=== PATIENT | female | born 1990 | race Caucasian/White ===

== ENCOUNTER 2016-09-10 17:59 | Emergency (ER) | payer MEDICAID, OTHER ==
[~2016-09-10] VITALS: Ht 160 cm; Wt 81.6 kg
[~2016-09-10 17:59] MED LIST: HYDR-4446 PO; LEVO500T6 PO
[2016-09-10 18:43] VITALS: BP 124/66
--- NOTE | 2016-09-10 20:56 | NUR ---
Patient to OF.
--- NOTE | 2016-09-10 21:00 | NUR ---
25Y F PRESENTED IN ER C/O OF CRAMPING PAIN TO SUPRAPUBIC AREA X2 DAYS. PAIN IS GETTING WORST TODAY. PT STATES SHE HAS SOME CLEAR GLUEY DISCHARGES.
--- NOTE | 2016-09-10 21:19 | NUR ---
Patient to bed 08.
[2016-09-10 22:52] VITALS: BP 125/71
--- NOTE | 2016-09-10 22:52 | NUR ---
DISCHARGE NOTE ONLY: Patient discharged with v/s stable BY ER MD DR ROQUE. Written and verbal after care instructions given and explained BY ER MD DR ROQUE. Patient alert, oriented and verbalized understanding of instructions. Ambulatory with steady gait. All questions addressed prior to discharge BY ER MD DR ROQUE. ID band removed. Patient advised to follow up with PMD. Rx of DOXYCYCLINE 100MG given. Patient educated on indication of medication including possible reaction and side effects. Opportunity to ask questions provided and answered BY ER MD DR ROQUE.
== END 2016-09-10 22:52 | disposition home or self-care (01) ==
LOC: MED 17:59
DX: N76.0 Acute vaginitis (principal)
CPT/HCPCS: 36415; 81025; 87070; 87210; 99284

== ENCOUNTER 2021-06-18 17:02 | Emergency (ER) | payer OTHER ==
[~2021-06-18] VITALS: Ht 160 cm; Wt 91.6 kg
[~2021-06-18 17:02] MED LIST changes: +ACET-8386 PO; -HYDR-4446 PO
[2021-06-18 17:24] VITALS: BP 132/70
--- NOTE | 2021-06-18 17:31 | NUR ---
LYNNE. HANDED ON URINE CUP.
[2021-06-18] MEDS ORDERED: CEPH250C16 PO (18:13)
[2021-06-18 18:18] VITALS: BP 115/70
== END 2021-06-18 18:19 | disposition home or self-care (01) ==
LOC: MED 17:02
DX: N30.90 Cystitis, unspecified without hematuria (principal)
CPT/HCPCS: 81002; 81025; 99283

== ENCOUNTER 2022-07-22 13:08 | Emergency (ER) | payer OTHER ==
[~2022-07-22] VITALS: Ht 160 cm; Wt 75.3 kg
[~2022-07-22 13:08] MED LIST changes: -ACET-8386 PO; +ACET-8905 PO; +CEPH250C16 PO
[2022-07-22 13:25] VITALS: BP 124/68
--- NOTE | 2022-07-22 14:00 | NUR ---
BIB SELF C/O LOSS OF APPITITE 1 WEEK AND C/O DIARRHEA X 4 DAYS AND C/O COUGH, MID CHEST PAIN X 3 DAYS AND C/O VAZQUEZ, SORE THROAT X 2 DAYS AND C/O FEVER, CHILLS, RLQ ABDOMINAL PAIN X LAST NIGHT. COVID TESTED NEGATIVE 2 DAYS AGO. PMH: DENIES
[2022-07-22 14:30] LABS: APPEARANCE,URINE HAZY (CLEAR); BILIRUBIN,URINE NEGATIVE (NEGATIVE); BLOOD, URINE 1+ (NEGATIVE); COLOR,URINE YELLOW (YELLOW); LEUKOCYTE ESTERASE ,URINE NEGATIVE (NEGATIVE); NITRITE, URINE NEGATIVE (NEGATIVE); UGLUCOSE NEGATIVE (NEGATIVE)
--- NOTE | 2022-07-22 14:43 | NUR ---
CALLED X1. NO SHOW.
--- NOTE | 2022-07-22 14:48 | NUR ---
PT CALLED BY [employer] REPRESENT[employer]IVE [employer] IN LOBBY AND OUTSIDE, NO ANSWER
[2022-07-22 15:06] LABS: WBC,URINE 0-5 /HPF (0-5)
--- NOTE | 2022-07-22 15:20 | NUR ---
COVID, FLU SWABS DONE.
[2022-07-22 15:24] LABS: BASOPHILS % (AUTO) 0.6 % (0.0-2.0); EOSINOPHILS # (AUTO) 0.2 K/uL (0-0.4); EOSINOPHILS % (AUTO) 3.4 % (0.0-4.0); HEMATOCRIT 39.4 % (36-48); HEMOGLOBIN 13.2 g/dL (12.0-16.0); LYMPHOCYTES # (AUTO) 2.4 K/uL (2.5-16.5); LYMPHOCYTES % (AUTO) 34.9 % (20.5-51.1); MEAN CORPUSCULAR HEMOGLOBIN 31 pg (27-31); MEAN CORPUSCULAR HGB CONC 34 g/dL (33-37); MEAN CORPUSCULAR VOLUME 91.8 fL (80-94); MONOCYTES # (AUTO) 0.8 K/uL (0.8-1.0); NEUTROPHILS # (AUTO) 3.5 K/uL (1.8-7.7); NEUTROPHILS % (AUTO) 50.1 % (42.2-75.2); PLATELET COUNT (AUTO) 275 K/uL (140-450); RED BLOOD CELL COUNT(AUTO) 4.29 MIL/uL (4.20-5.40); RED CELL DISTRIBUTION WIDTH 14.3 % (11.6-13.7); WHITE BLOOD COUNT (AUTO) 6.9 K/uL (4.8-10.8)
[2022-07-22 15:50] LABS: ANION GAP 6.9 (8-16); CARBON DIOXIDE 31.9 mmol/L (21-32); CREATININE 0.8 mg/dL (0.6-1.3); POTASSIUM 3.8 mmol/L (3.5-5.1)
[2022-07-22 15:56] LABS: ALBUMIN 3.5 g/dL (3.4-5.0); TOTAL BILIRUBIN 0.3 mg/dL (0.0-1.0)
[2022-07-22] MEDS ORDERED: ONDA-188 SL (17:11)
[2022-07-22] MEDS ORDERED: GUAI-791 PO (17:11)
[2022-07-22] MEDS ORDERED: IBUP-2213 PO (17:11)
[2022-07-22] MEDS ORDERED: PSEU-250 PO (17:11)
[2022-07-22] MEDS ORDERED: PROM118S5 PO (17:11)
[2022-07-22 17:20] VITALS: BP 116/62
--- NOTE | 2022-07-22 17:20 | NUR ---
Patient discharged with v/s stable. Written and verbal after care instructions given and explained. Patient alert, oriented and verbalized understanding of instructions. Ambulatory with steady gait. All questions addressed prior to discharge. ID band removed. Patient advised to follow up with PMD. Rx of IBUPROFEN, ZOFRAN, MUCINEX, PSEUDOEPHEDRINE, PROMETHAZINE given. Patient educated on indication of medication including possible reaction and side effects. Opportunity to ask questions provided and answered.
== END 2022-07-22 17:20 | disposition home or self-care (01) ==
LOC: MED 13:08
DX: B34.9 Viral infection, unspecified (principal); Z20.822 Contact with and (suspected) exposure to COVID-19; R19.7 Diarrhea, unspecified; R10.9 Unspecified abdominal pain; Z79.899 Other long term (current) drug therapy
CPT/HCPCS: 36415; 80053; 81001; 81025; 82150; 83690; 85025; 99283

== ENCOUNTER 2022-08-21 04:13 | Emergency (ER) | payer OTHER ==
[~2022-08-21] VITALS: Ht 160 cm; Wt 74.4 kg
[~2022-08-21 04:13] MED LIST changes: +GUAI-791 PO; +IBUP-2213 PO; +ONDA-188 SL; +PROM118S5 PO; +PSEU-250 PO
[2022-08-21 04:17] VITALS: BP 111/54
--- NOTE | 2022-08-21 04:30 | NUR ---
PT TAKEN TO BED 3
[2022-08-21] MEDS ORDERED: KETOROLAC 30 MG/ML VIAL IM ONE (04:35)
--- NOTE | 2022-08-21 04:44 | NUR ---
Dr. Taylor examining patient.
--- NOTE | 2022-08-21 04:51 | NUR ---
Ultrasound at bedside.
[2022-08-21 04:55] VITALS: BP 111/54
[2022-08-21 05:28] LABS: BASOPHILS # (AUTO) 0.1 K/uL (0.00-0.22); BASOPHILS % (AUTO) 0.7 % (0.0-2.0); EOSINOPHILS # (AUTO) 0.2 K/uL (0-0.4); EOSINOPHILS % (AUTO) 1.6 % (0.0-4.0); HEMATOCRIT 39.6 % (36-48); HEMOGLOBIN 13.1 g/dL (12.0-16.0); LYMPHOCYTES # (AUTO) 3.7 K/uL (2.5-16.5); LYMPHOCYTES % (AUTO) 29.2 % (20.5-51.1); MEAN CORPUSCULAR HEMOGLOBIN 31 pg (27-31); MEAN CORPUSCULAR HGB CONC 33 g/dL (33-37); MONOCYTES # (AUTO) 0.6 K/uL (0.8-1.0); MONOCYTES % (AUTO) 4.6 % (1.7-9.3); NEUTROPHILS # (AUTO) 8.1 K/uL (1.8-7.7); NEUTROPHILS % (AUTO) 63.9 % (42.2-75.2); PLATELET COUNT (AUTO) 318 K/uL (140-450); RED BLOOD CELL COUNT(AUTO) 4.26 MIL/uL (4.20-5.40); RED CELL DISTRIBUTION WIDTH 14.2 % (11.6-13.7); WHITE BLOOD COUNT (AUTO) 12.7 K/uL (4.8-10.8)
[2022-08-21] MEDS: PHENAZOPYRIDINE 100 MG TAB PO ONE (05:28)
[2022-08-21 05:29] LABS: APPEARANCE,URINE CLEAR (CLEAR); BILIRUBIN,URINE NEGATIVE (NEGATIVE); BLOOD, URINE TRACE-I (NEGATIVE); COLOR,URINE YELLOW (YELLOW); LEUKOCYTE ESTERASE ,URINE TRACE (NEGATIVE); NITRITE, URINE NEGATIVE (NEGATIVE); UGLUCOSE NEGATIVE (NEGATIVE)
[2022-08-21] MEDS: KETOROLAC 30 MG/ML VIAL IVP ONE (05:29)
[2022-08-21] MEDS: NACL 0.9% 1,000 ML IV SCH (05:31)
[2022-08-21 05:32] LABS: RBC,URINE 0-5 /HPF (0-5)
[2022-08-21 05:49] LABS: ALBUMIN 3.3 g/dL (3.4-5.0); ANION GAP 12.2 (8-16); CREATININE 0.8 mg/dL (0.6-1.3); POTASSIUM 4.2 mmol/L (3.5-5.1); TOTAL BILIRUBIN 0.3 mg/dL (0.0-1.0)
[2022-08-21] MEDS ORDERED: CEPH-588 PO (06:33)
[2022-08-21] MEDS ORDERED: IBUP-2213 PO (06:33)
[2022-08-21] MEDS ORDERED: cefTRIAXone 1,000 MG VIAL ONE (07:15)
--- NOTE | 2022-08-21 07:30 | NUR ---
PATIENT IS DOING WELL. WILL dC AFTER ROCEPHIN INFUSION. DC INSTRUCTION GIVEN.
--- NOTE | 2022-08-21 07:39 | NUR ---
IV removed, catheter intact and site benign. Applied folded 4x4 gauze and tape to stop bleeding.
--- NOTE | 2022-08-21 07:40 | NUR ---
Patient discharged with v/s stable. Written and verbal after care instructions FOR PYLENEPHRITIS AND UTI given and explained. Patient alert, oriented and verbalized understanding of instructions. Ambulatory with steady gait. All questions addressed prior to discharge. ID band removed. Patient advised to follow up with PMD. Rx of KELFEX AND IBUPROFEN given. Opportunity to ask questions provided and answered.
--- NOTE | 2022-08-21 07:56 | NUR ---
The patient's care was reviewed and supervised by [facility], RN.
== END 2022-08-21 07:40 | disposition home or self-care (01) ==
LOC: MED 04:13
DX: N39.0 Urinary tract infection, site not specified (principal); N83.202 Unspecified ovarian cyst, left side; N12 Tubulo-interstitial nephritis, not specified as acute or chronic; Z90.49 Acquired absence of other specified parts of digestive tract; Z98.51 Tubal ligation status; Z98.890 Other specified postprocedural states; Z79.899 Other long term (current) drug therapy; Z79.1 Long term (current) use of non-steroidal anti-inflammatories (NSAID); Z79.2 Long term (current) use of antibiotics; Z79.891 Long term (current) use of opiate analgesic
CPT/HCPCS: 36415; 74176; 76856; 80053; 81001; 83605; 85025; 87040; 87086; 93976; 96361; 96374; 96375; 99285; J0696; J1885; J7030; Q0092; 96365

== ENCOUNTER 2023-01-21 08:33 | Emergency (ER) | payer OTHER ==
[~2023-01-21] VITALS: Ht 160 cm; Wt 68.3 kg
[~2023-01-21 08:33] MED LIST changes: +CEPH-588 PO
[2023-01-21 09:00] VITALS: BP 107/73; PULSE 95; RESP 22; TEMP 95.5; O2SAT 98
[2023-01-21] MEDS ORDERED: ONDANSETRON 4 MG/2 ML VIAL IVP ONE ×2 (09:35→11:55)
[2023-01-21] MEDS ORDERED: NACL 0.9% 1,000 ML IV SCH (09:35)
[2023-01-21] MEDS ORDERED: FAMOTIDINE 20 MG/2 ML VIAL IVP ONE ×2 (09:35→11:55)
[2023-01-21 10:37] LABS: BASOPHILS # (AUTO) 0.1 K/uL (0.00-0.22); BASOPHILS % (AUTO) 0.5 % (0.0-2.0); EOSINOPHILS % (AUTO) 0.2 % (0.0-4.0); HEMATOCRIT 40.9 % (36-48); HEMOGLOBIN 13.6 g/dL (12.0-16.0); LYMPHOCYTES # (AUTO) 1.6 K/uL (2.5-16.5); LYMPHOCYTES % (AUTO) 11.8 % (20.5-51.1); MEAN CORPUSCULAR HEMOGLOBIN 31 pg (27-31); MEAN CORPUSCULAR HGB CONC 33 g/dL (33-37); MEAN CORPUSCULAR VOLUME 93.1 fL (80-94); MONOCYTES # (AUTO) 0.5 K/uL (0.8-1.0); MONOCYTES % (AUTO) 3.5 % (1.7-9.3); NEUTROPHILS # (AUTO) 11.2 K/uL (1.8-7.7); PLATELET COUNT (AUTO) 364 K/uL (140-450); RED BLOOD CELL COUNT(AUTO) 4.39 MIL/uL (4.20-5.40); RED CELL DISTRIBUTION WIDTH 12.8 % (11.6-13.7); WHITE BLOOD COUNT (AUTO) 13.3 K/uL (4.8-10.8)
[2023-01-21 10:52] LABS: ALBUMIN 3.7 g/dL (3.4-5.0); ANION GAP 9.9 (8-16); CALCIUM 8.7 mg/dL (8.5-10.1); CARBON DIOXIDE 29.4 mmol/L (21-32); CREATININE 0.8 mg/dL (0.6-1.3); POTASSIUM 4.3 mmol/L (3.5-5.1); TOTAL BILIRUBIN 0.3 mg/dL (0.0-1.0); TOTAL PROTEIN, SERUM 7.4 g/dL (6.4-8.2)
[2023-01-21] MEDS ORDERED: ONDA-188 PO (11:52)
[2023-01-21] MEDS ORDERED: OMEP40EC24 PO (11:52)
[2023-01-21] MEDS ORDERED: KETOROLAC 30 MG/ML VIAL IVP ONE (11:55)
== END 2023-01-21 12:16 | disposition home or self-care (01) ==
LOC: MED 08:33
DX: K29.70 Gastritis, unspecified, without bleeding (principal); R11.10 Vomiting, unspecified; R63.4 Abnormal weight loss; Z68.1 Body mass index [BMI] 19.9 or less, adult; Z79.899 Other long term (current) drug therapy
CPT/HCPCS: 36415; 80053; 81025; 83690; 84443; 85025; 96361; 96374; 96375; 99284; J1885; J2405; J3490; J7030